=== PATIENT | female | born 1990 | race African-American/Black ===

== ENCOUNTER 2019-10-20 15:52 | Emergency (ER) | payer MEDICAID ==
[~2019-10-20] VITALS: Ht 175.3 cm; Wt 136.0 kg
[2019-10-20 17:34] LABS: BASOPHILS % 0.8 % (0.0-2.0); EOSINOPHILS % 0.9 % (0.0-5.0); HEMATOCRIT. 37.3 % (36.0-48.0); HEMOGLOBIN. 12.8 g/dL (12.0-16.0); LYMPHOCYTES % 35.4 % (20.0-50.0); MEAN CORPUSCULAR HEMOGLOBIN 30.6 pg (28.0-32.0); MEAN CORPUSCULAR VOLUME 89.3 fL (81.0-99.0); MEAN PLATELET VOLUME 8.5 fl (7.4-10.4); MONOCYTES % 9.2 % (2.0-8.0); NEUTROPHILS % 53.7 % (40.0-76.0); PLATELET 225 x1000/uL (130-400); RED BLOOD CELL COUNT 4.18 mill/uL (4.2-5.4); RED CELL DISTRIBUTION WIDTH 13.7 % (11.6-14.6)
[2019-10-20 17:39] LABS: CHLORIDE 104 mEq/L (98-107)
[2019-10-20 17:43] LABS: ETHANOL BLOOD < 10 mg/dL
[2019-10-20 17:51] LABS: HCG SCREEN NEGATIVE
[2019-10-20] MEDS: OLANZAPINE 10 MG/VIAL IM ONE ×2 (18:13→18:41)
[2019-10-20 19:01] LABS: CLARITY URINE CLEAR (CLEAR); COLOR URINE YELLOW (YELLOW); KETONES URINE TRACE (NEGATIVE); LEUKOCYTE ESTERASE URINE 3+ (NEGATIVE); NITRITE URINE NEGATIVE (NEGATIVE); OCCULT BLOOD URINE NEGATIVE (NEGATIVE); PH URINE 6.5 (4.5-8.0); PROTEIN URINE NEGATIVE (NEGATIVE); SPECIFIC GRAVITY URINE 1.011 (1.005-1.030); UROBILINOGEN URINE 0.2 E.U./dL (0.2-1.0)
[2019-10-20 19:42] LABS: *AMPHETAMINES SCREEN URINE NEGATIVE (NEGATIVE); *BARBITURATES SCREEN URINE NEGATIVE (NEGATIVE); *BENZODIAZEPINES SCREEN URINE NEGATIVE (NEGATIVE); *COCAINE SCREEN URINE NEGATIVE (NEGATIVE); METHADONE URINE SCREEN NEGATIVE (NEGATIVE)
[2019-10-20 19:43] LABS: CANNABINOID URINE SCREEN NEGATIVE (NEGATIVE); OPIATES URINE SCREEN NEGATIVE (NEGATIVE); PHENCYCLIDINE URINE SCREEN NEGATIVE (NEGATIVE)
[2019-10-20] MEDS ORDERED: DIPHENHYDRAMINE 50MG CAPSULE PO ONE (22:45)
[2019-10-20] MEDS ORDERED: ZIPRASIDONE HCL 80MG CAPSULE PO ONE (23:45)
[2019-10-20] MEDS ORDERED: DIVALPROEX SODIUM 500MG ER TABLET PO STA (23:45)
[2019-10-21] MEDS ORDERED: ACETAMINOPHEN 500MG TABLET PO ONE (09:00)
[2019-10-21] MEDS ORDERED: IBUPROFEN 800MG TABLET PO ONE (09:00)
[2019-10-21] MEDS ORDERED: LORAZEPAM 1MG TABLET PO NR (16:00)
[2019-10-21] MEDS ORDERED: HALOPERIDOL LACTATE 5MG/ML VIAL IM ONE (16:30)
[2019-10-21] MEDS ORDERED: OLANZAPINE 10 MG/VIAL IM ONE (16:45)
[2019-10-21] MEDS ORDERED: LORAZEPAM 2MG/ML CPJ IM ONE (16:45)
[2019-10-21] MEDS ORDERED: LORAZEPAM 2MG/ML CPJ IM NR (21:15)
[2019-10-21] MEDS ORDERED: DIVALPROEX SODIUM 250MG ER TABLET PO ONE (22:45)
[2019-10-21] MEDS ORDERED: ZIPRASIDONE HCL 40MG CAPSULE PO NR (22:45)
[2019-10-21] MEDS ORDERED: DIVALPROEX SODIUM 500MG ER TABLET PO NR (22:45)
[2019-10-21] MEDS ORDERED: ZIPRASIDONE HCL 80MG CAPSULE PO ONE (22:45)
[2019-10-21] MEDS ORDERED: IBUPROFEN 600MG TABLET PO ONE (23:15)
[2019-10-22] MEDS ORDERED: LORAZEPAM 1MG TABLET PO ONE (10:15)
[2019-10-22 13:18] VITALS: BP 134/77
== END 2019-10-22 13:26 ==
LOC: ER 15:52
DX: F31.9 Bipolar disorder, unspecified (principal)
CPT/HCPCS: 36415; 80053; 80165; 80305; 80320; 81003; 82962; 84703; 85025; 96372; 99285; J3490; Q0163; G0480

== ENCOUNTER 2021-10-31 15:32 | Emergency (ER) | payer MEDICAID ==
[~2021-10-31] VITALS: Ht 172.7 cm; Wt 124.0 kg
[2021-10-31 15:48] VITALS: BP 135/83
[2021-10-31] MEDS ORDERED: IBUP-2028 MT (18:25)
[2021-11-01 01:48] LABS: *AMPHETAMINES SCREEN URINE NEGATIVE (NEGATIVE); *BARBITURATES SCREEN URINE NEGATIVE (NEGATIVE); *BENZODIAZEPINES SCREEN URINE NEGATIVE (NEGATIVE); *COCAINE SCREEN URINE NEGATIVE (NEGATIVE); CANNABINOID URINE SCREEN NEGATIVE (NEGATIVE); METHADONE URINE SCREEN NEGATIVE (NEGATIVE); OPIATES URINE SCREEN NEGATIVE (NEGATIVE); PHENCYCLIDINE URINE SCREEN NEGATIVE (NEGATIVE)
[2021-11-01 03:02] LABS: CLARITY URINE CLEAR (CLEAR); COLOR URINE YELLOW (YELLOW); KETONES URINE TRACE (NEGATIVE); LEUKOCYTE ESTERASE URINE 1+ (NEGATIVE); NITRITE URINE NEGATIVE (NEGATIVE); OCCULT BLOOD URINE 3+ (NEGATIVE); PROTEIN URINE 2+ (NEGATIVE); SPECIFIC GRAVITY URINE 1.036 (1.005-1.030)
== END 2021-10-31 19:09 | disposition home or self-care (01) ==
LOC: ER 15:32
DX: S09.8XXA Other specified injuries of head, initial encounter (principal); R45.851 Suicidal ideations; F31.9 Bipolar disorder, unspecified; Y08.89XA Assault by other specified means, initial encounter; Y93.89 Activity, other specified; Y92.89 Other specified places as the place of occurrence of the external cause; Y99.8 Other external cause status
CPT/HCPCS: 99284

== ENCOUNTER 2021-10-31 20:08 | Emergency (ER) | payer MEDICAID ==
[~2021-10-31] VITALS: Ht 175.3 cm; Wt 121.4 kg
[~2021-10-31 20:08] MED LIST: IBUP-2028 MT
[2021-10-31 23:40] LABS: BASOPHILS % 0.3 % (0.0-2.0); EOSINOPHILS % 1.2 % (0.0-5.0); HEMATOCRIT. 37.3 % (36.0-48.0); HEMOGLOBIN. 12.4 g/dL (12.0-16.0); LYMPHOCYTES % 35.3 % (20.0-50.0); MEAN CORPUSCULAR HEMOGLOBIN 29.7 pg (28.0-32.0); MEAN CORPUSCULAR VOLUME 89.4 fL (81.0-99.0); MEAN PLATELET VOLUME 8.6 fl (7.4-10.4); MONOCYTES % 10.2 % (2.0-8.0); PLATELET 253 x1000/uL (130-400); RED BLOOD CELL COUNT 4.18 mill/uL (4.2-5.4); RED CELL DISTRIBUTION WIDTH 13.8 % (11.6-14.6)
[2021-10-31 23:48] LABS: CHLORIDE 107 mEq/L (98-107)
[2021-10-31 23:54] LABS: ETHANOL BLOOD < 10 mg/dL
[2021-11-01 00:09] LABS: HCG SCREEN NEGATIVE
[2021-11-01] MEDS: ARIPIPRAZOLE 5MG TABLET PO SCH (09:45)
[2021-11-01 13:16] LABS: CLARITY URINE TURBID (CLEAR); COLOR URINE RED (YELLOW); KETONES URINE NEGATIVE (NEGATIVE); LEUKOCYTE ESTERASE URINE 2+ (NEGATIVE); NITRITE URINE NEGATIVE (NEGATIVE); OCCULT BLOOD URINE 3+ (NEGATIVE); PH URINE 6.5 (4.5-8.0); PROTEIN URINE 2+ (NEGATIVE); SPECIFIC GRAVITY URINE 1.031 (1.005-1.030); UROBILINOGEN URINE 0.2 E.U./dL (0.2-1.0)
[2021-11-01 13:40] LABS: *AMPHETAMINES SCREEN URINE NEGATIVE (NEGATIVE); *BARBITURATES SCREEN URINE NEGATIVE (NEGATIVE); *BENZODIAZEPINES SCREEN URINE NEGATIVE (NEGATIVE); *COCAINE SCREEN URINE NEGATIVE (NEGATIVE); CANNABINOID URINE SCREEN NEGATIVE (NEGATIVE); METHADONE URINE SCREEN NEGATIVE (NEGATIVE); OPIATES URINE SCREEN NEGATIVE (NEGATIVE); PHENCYCLIDINE URINE SCREEN NEGATIVE (NEGATIVE)
[2021-11-01] MEDS ORDERED: DIVALPROEX SODIUM 500MG ER TABLET PO SCH (21:00)
[2021-11-01] MEDS ORDERED: IBUPROFEN 600MG TABLET PO ONE (22:15)
[2021-11-01] MEDS: PRAZOSIN HCL 1MG CAPSULE PO SCH ×2 (22:39→22:52)
[2021-11-02] MEDS: ARIPIPRAZOLE 5MG TABLET PO SCH (09:04)
[2021-11-02 14:18] VITALS: BP 135/70
== END 2021-11-02 15:00 | disposition home or self-care (01) ==
LOC: ER 20:08
DX: R45.851 Suicidal ideations (principal); F31.9 Bipolar disorder, unspecified; Z20.822 Contact with and (suspected) exposure to COVID-19
CPT/HCPCS: 36415; 80053; 80305; 80307; 80320; 80329; 84703; 85025; 99285; C9803; U0003; U0005; G0480